=== PATIENT | female | born 2000 | race Two or more races ===

== ENCOUNTER 2025-08-26 13:00 | Outpatient (AMB) | payer MEDICAID, SELFPAY ==
[2025-08-26 13:13] VITALS: BP 130/75; PULSE 89; RESP 16; TEMP 36.9; O2SAT 98; BMI 46.3
--- NOTE | 2025-08-26 13:13 | OBCLNT_ITS ---
Vital Signs 08/26/25 13:13 Height 1.63 m Height Method Stated Weight 122.527 kg Weight Measurement Method Standing Scale BMI 46.3 BP 130/75 Blood Pressure Source Automatic Cuff Blood Pressure Location Left Upper Arm Position Sitting Respiration 16 Pulse 89 Pulse Source Monitor Temp 98.5 F Temp Source Oral Pulse Oximetry (%) 98 Oxygen Delivery Method Room Air Allergies/Home Meds Allergies & Medications Allergies No Known Allergies Allergy (Verified 08/26/25 13:21) Medication Reconciliation No Known Home Medications 08/26/25 [History Confirmed 08/26/25] Intake Visit Data Collection New Patient or Established: Established Patient (seen at [facility] within 3 years) Reason for Visit:: TRANSFER INITIAL CARE Seen by Clinical Staff ONLY (RN/MA): No Straw Hat Machine Operator Required: No Do You Feel Safe at Home: Yes Authorities Contacted: N/A PCP or OBGYN visit in last 3 months: Yes Hx Now: Yes Are you currently on any form of Control: No Last menstrual period: 06/27/25 Pain Present Currently: No Pain Scale Used: Rob-Matt/Numerical Pain scale:: 0 Smoking Status Smoking Status: Current every day smoker Cessation Counseling Provided: BETHEL was advised that quitting smoking is the single most important factor to protect the health of themselves and their family. Discussed the benefits of quitting smoking with patient. Encouraged patient to quit smoking and provided Cessation assistance materials and resources. Tobacco Use: Cigarette Years smoked: 6 Are you interested in Quitting?: No Would you like additional Smoking Cessation Counseling?: No Questionnaires Covid-19 Vaccine Questionnaire Has patient been vacinated for Covid-19 Have you been vacinated for Covid-19: No PHQ-9 PHQ-2 Over the last 2 weeks, how often have you been bothered by any of the following problems? 1. Little interest or pleasure in doing things: not at all 2. Feeling down, depressed, or hopeless: not at all Total score: 0 PHQ-9 3. Trouble falling or staying asleep, or sleeping too much: Not at all 4. Feeling tired or having little energy: Not at all 5. Poor appetite or overeating: Not at all 6. Feeling bad about yourself - or that you are a failure or have let yourself or your family down: Not at all 7. Trouble concentrating on things, such as reading the newspaper or watching television: Not at all 8. Moving or speaking so slowly that other people could have noticed? - Or the opposite - being so fidgety or restless that you have been moving around a lot more than usual: not at all 9. Thoughts that you would be better off or of hurting yourself in some way: Not at all Total score: 0 Source: Developed by Drs. Mak Ramírez, Nette Cee, Brando Cortes and colleagues, with an educational sandeep from [employer]. Depression screen completed yes Social History Living Situation History Lives With: Family Housing: Apartment Tobacco History Smoking Status: Current every day smoker Second Hand Smoke Exposure: Yes Alcohol History Alcohol Intake: Former Substance Use History Substance Use: MARIJUANA Domestic Abuse History Do You Feel Safe at Home: Yes History of Present Illness HPI Narrative Assessment IUP at S<D gestational age of 8.3 weeks and by bedside US 6.2 weeks in a 25 years old G2 P 0 obese patient additional diagnoses size discrepency in dates Plan vaginal Ob US for dates labs NIPT and ARI for chlamydia next visit refer for Vaginal US education/counselling medications PNV immunization to be addressed next visit / Flu and Tdap Follow up 4 weeks OB Initial Visit OB Flowsheet OB Flowsheet Initial Weight: Not Recorded Date -?-?-?-?-?-?-?-?-?-?-?-?- EGA Weight BP Alb Glu CTX Pres Fundal ht FHR Mov Dilation Station Effacement Hx Notes Visit Note 08/26/25 -?-?-?-?-?-?-?-?-?-?-?-?- 8w 3d 122.527 kg 130/75 Menstrual History Menstrual reliability: definite Flow: normal Menstrual regularity: regular Monthly: Yes Age at menarche: 13 On control pills at conception: No Associated symptoms (LMP): Reports nausea, vomiting, fatigue and bloating OB History : 2 Hx Total # of Abortions (Spontaneous & Elective): 0 Infection History & Risk Evaluation History of STDs: [place]lamydia ([place]) Genetic Screening & History Genetic Screening/Teratology Counseling - Includes patient, baby's father, or anyone in either family with: 1. Patient's age 35 years or older as of estimated date of delivery: No 2. Thalassemia (Citizen Of [place], Uzbek, Mediterranean, or Background); MCV less than 80: No 3. Neural Tube Defect (Meningomyelocele, Spina Bifida, or Anencephaly): No 4. Congenital Heart Defect: No 5. Down Syndrome: No 6. Kristian-Sachs (Ashkenazi Scientology, Cajun, Mal[place]ian Isabela): No 7. Ciro Disease (Ashkenazi Scientology): No 8. Familial Dysautonomia (Ashkenazi Scientology): No 9. Sickle Cell Disease or Trait (): No 10. Hemophilia or other blood disorders: No 11. Muscular Dystrophy: No 12. Cystic Fibrosis: No 13. Dane's Chorea: No 14. Mental Retardation/Autism: No 15. Other inherited genetic or chromosomal disorder: No 16. Maternal Metabolic Disorder (EG,TYPE 1 Diabetes, PKU): No 17. Patient or baby's father had a child with defects not listed above: No 18. Recurrent loss or a stillbirth: No 19. Medications (including supplements, vitamins, herbs or otc drugs)/illicit/recreational drugs/alcohol since last menstrual period: No 20. Any other: No Infection History 1. Live with someone with TB or exposed to TB: No 2. Rash or viral illness since last menstrual period: No 3. Hepatitis B,C: No 4. History of STD: chlamydia ([place] 20[place]) Other (see comments) Source: [employer] Review of Systems Review of Systems Systems Reviewed: All systems reviewed, normal except as documented Constitutional Constitutional: Reports fatigue Gastrointestinal Gastrointestinal: Reports bloating, Reports nausea and Reports vomiting Endocrine Endocrine: Reports fatigue Exam Narrative Physical exam: Alert and oriented x 3 no shortness of breath Pain no chest pain no palpitations Chest clear bilaterally no additional sounds, no wheezing no rales CVS regular rate and rhythm No CVAT Abdomen nontender, normal bowel sounds No guarding no rigidity No hernias Office Procedures OBC Clinic LOC & Office Proc's Nursing/Assessment Patient Status: Initial/New Patient OB Clinic Nursing Assessment: Medication Reconciliation, Update PMH in EMR and Vital Signs OB Clinic Coordination of Care: Complex Care and Chronic Disease 1-5, Consent,records obtained, informed consent, Education Simp Pt/Fam, 1 Ins Authorization, Lab and Imaging orders, Results/Orders obtained and Staff clarify orders Special Needs: Heart tones New Patient Charge New Patient Point Assignment: [id number] New Patient Point Charge: LEAD SOFTWARE ARCHITECT Level 4 ([id number]) Assessment & Plan Diagnosis / Problem List (1) : Status: Acute Assessment and Plan: bedside Us abdominal shows a GS c/w 6.2 weeks . at 1.40 cm Plan ob vaginal US at [facility] and follow up in 4 weeks RH NEGATIVE (2) Size of fetus inconsistent with dates in first trimester: Status: Acute Plan: vaginal US Additional Plan Us and follow up and then order NIPT/ Carrier screening done at [facility] and reslts pending Chlamydia treated this month , needs ARI next visit / Follow up in 4 weeks
== END 2025-08-26 13:36 | disposition home or self-care (01) ==
LOC: HODSOBC 13:00
PROVIDERS: PCP Nurse Practitioner; Referring Provider Nurse Practitioner; Supervising Provider Obstetrics & Gynecology; Visit Provider Obstetrics & Gynecology
DX: O09.891 Supervision of other high risk pregnancies, first trimester (principal); O26.841 Uterine size-date discrepancy, first trimester; Z67.91 Unspecified blood type, Rh negative; O99.211 Obesity complicating pregnancy, first trimester; O99.331 Smoking (tobacco) complicating pregnancy, first trimester; F17.210 Nicotine dependence, cigarettes, uncomplicated; Z3A.01 Less than 8 weeks gestation of pregnancy; Z71.6 Tobacco abuse counseling
CPT/HCPCS: 99204; G0463

== ENCOUNTER → 2025-09-02 | Outpatient (CLI) | payer MEDICAID, SELFPAY ==
--- NOTE | 2025-09-02 | XR_ITS ---
Examination: Complete OB ultrasound, less than 14 weeks, transabdominal Date and time of exam: September 02, 2025, 1301 hours INDICATIONS: First trimester with size dates discrepancy Technique: Obstetrical ultrasound images less than 14 weeks performed via transabdominal imaging Findings: A normal shaped single intrauterine gestation is present in the uterus. CRL 1.0 cm corresponds to 7-week 0-day gestational age Cardiac motion 135 bpm Ultrasonographic survey of visible and placental structures unremarkable. Amniotic fluid volume appears appropriate for this estimated gestational age. Right ovary 3.1 cm arterial flow Left ovary 2.0 cm arterial flow IMPRESSION: Viable intrauterine gestation 7 weeks 0 days.
== END | disposition home or self-care (01) ==
PROVIDERS: PCP Nurse Practitioner; Referring Provider Obstetrics & Gynecology; Visit Provider Obstetrics & Gynecology
DX: O26.841 Uterine size-date discrepancy, first trimester (principal); Z3A.01 Less than 8 weeks gestation of pregnancy
CPT/HCPCS: 76801

== ENCOUNTER 2025-09-28 13:20 | Outpatient (AMB) | payer MEDICAID, SELFPAY ==
[2025-09-28 13:35] VITALS: BP 133/74; PULSE 83; RESP 18; TEMP 36.2; O2SAT 98; BMI 45.8
--- NOTE | 2025-09-28 13:35 | OBCLNT_ITS ---
Vital Signs 09/28/25 13:35 Height 1.63 m Height Method Stated Weight 121.733 kg Weight Measurement Method Standing Scale BMI 45.8 BP 133/74 H Blood Pressure Source Automatic Cuff Blood Pressure Location Left Upper Arm Position Sitting Respiration 18 Pulse 83 Pulse Source Monitor Temp 97.2 F Temp Source Oral Pulse Oximetry (%) 98 Oxygen Delivery Method Room Air Allergies/Home Meds Allergies & Medications Allergies No Known Allergies Allergy (Verified 09/28/25 13:36) Medication Reconciliation metoclopramide HCl 10 mg tablet (Reglan) 10 mg PO Q8H #90 tabs 09/28/25 [Rx] Immunizations Immunizations Flu Vaccine in the Last 12 Months: No Flu Vaccine Exclusion Criteria: No Exclusion Criteria Care OB Visit Log OB Flowsheet Initial Weight: Not Recorded Date -?-?-?-?-?-?-?-?-?-?-?-?- EGA Weight BP Alb Glu CTX Pres Fundal ht FHR Mov Dilation Station Effacement Hx Notes Visit Note 08/26/25 -?-?-?-?-?-?-?-?-?-?-?-?- 6w 0d 122.527 kg 130/75 09/28/25 -?-?-?-?-?-?-?-?-?-?-?-?- 10w 5d 121.733 kg 133/74 10 159 CATINA Calculator Estimated Delivery Date Method Current WG Current Estimate 04/21/26 Ultrasound #1 11w 0d Other Estimates 04/04/26 LMP (Uncertain) 13w 3d Notes Visit Date: 09/28/25 Last Updated by: Bina Valles MD on diclegis and has problem keeping food down/ will add reglan and follow up prn or in 4 weeks Dating now established by a 7 week US done at [facility] on 09/02/2025 Today Bedside US c/w CRL of 10.4 weeks and a single fetus/ IUP with FCA seen at 159bpm / plan first trimester labs and also NIPT and carrier testing Visit Date: 08/26/25 Last Updated by: Bina Valles MD bedside Us abdominal shows a GS c/w 6.2 weeks . at 1.40 cm Plan ob vaginal US at [facility] and follow up in 4 weeks RH NEGATIVE Hb 11 , mcv IS LOW AND mchc IS LOW /patient not taking Tramadol or anti depressants she is treated for chlamydia earlier this month / follow up in 4 weeks and plan ARI and NIPT then / Taking PNV Office Procedures OBC Clinic LOC & Office Proc's Nursing/Assessment Patient Status: Established Patient OB Clinic Nursing Assessment: Medication Reconciliation, Update PMH in EMR and Vital Signs OB Clinic Coordination of Care: Consent,records obtained, informed consent, Education Simp Pt/Fam, Lab and Imaging orders, Results/Orders obtained and Staff clarify orders Special Needs: Heart tones Established Patient Charge Established Patient Point Assignment: 110 Established Patient Point Charge: EP Level 3 (80-115) Assessment & Plan Diagnosis / Problem List (1) Size of fetus inconsistent with dates in first trimester: Status: Acute Assessment and Plan: dating established now and patient is 10.5 weeks (2) : Status: Acute Qualifiers: Weeks of gestation: 10 weeks Qualified Code(s): Z3A.10 - 10 weeks gestation of (3) Vomiting affecting , antepartum: Status: Acute Plan: add reglan before meals Assessment and Plan: HISTORY OF PRESENT ILLNESS AI Consent obtained: I, Dr. Valles, have obtained verbal consent from the patient, to be recorded during this encounter which may include, but not limited to, medical history, examination, treatment plans, and relevant health information. Patient was informed that recording will be read and reviewed by myself before inclusion in the medical chart. Recordings will be maintained in accordance with State and Federal law and only for a limited period of time for validation purposes, then destroyed and not retained. The patient presents for evaluation of . She is currently with her first child and has not yet undergone any laboratory tests. She has been experiencing difficulty in retaining food, often regurgitating within 10 to 15 minutes post-consumption. Despite being prescribed a medication for nausea, she reports it has not been effective. She is currently taking vitamins. PHYSICAL EXAM Obstetric: Fundal Height: Consistent with 10 weeks and 4 days gestation. Heart Tones: 159 bpm, normal. RESULTS Imaging - Ultrasound: Healthy fetus with a heartbeat of 159 bpm ASSESSMENT AND PLAN 1. : - The ultrasound dating has been updated, showing she is 10 weeks and 5 days . - The heartbeat is 159 bpm, which is normal. - A comprehensive set of laboratory tests will be ordered, including gender testing and genetic disease screening. - She is recommended to receive the influenza vaccine during her . 2. Nausea: - She reports difficulty keeping food down and that her current medication is not effective. - Reglan will be added to her treatment regimen, to be taken 30 minutes before meals, three times daily.
== END 2025-09-28 14:19 | disposition home or self-care (01) ==
LOC: HODSOBC 13:20
PROVIDERS: Supervising Provider Obstetrics & Gynecology; Visit Provider Obstetrics & Gynecology
DX: O09.891 Supervision of other high risk pregnancies, first trimester (principal); O26.841 Uterine size-date discrepancy, first trimester; O21.9 Vomiting of pregnancy, unspecified; Z3A.10 10 weeks gestation of pregnancy
CPT/HCPCS: 99213; G0463

== ENCOUNTER 2025-10-26 10:37 | Outpatient (AMB) | payer MEDICAID, SELFPAY ==
[2025-10-26 11:21] VITALS: BP 133/76; PULSE 93; RESP 18; TEMP 36.8; O2SAT 98; BMI 45.4
--- NOTE | 2025-10-26 11:21 | OBCLNT_ITS ---
Vital Signs 10/26/25 11:21 Height 1.63 m Height Method Stated Weight 120.826 kg Weight Measurement Method Standing Scale BMI 45.4 BP 133/76 H Blood Pressure Source Automatic Cuff Blood Pressure Location Left Upper Arm Position Sitting Respiration 18 Pulse 93 Pulse Source Monitor Temp 98.2 F Temp Source Oral Pulse Oximetry (%) 98 Oxygen Delivery Method Room Air Allergies/Home Meds Allergies & Medications Allergies No Known Allergies Allergy (Verified 10/26/25 11:21) Medication Reconciliation metoclopramide HCl 10 mg tablet (Reglan) 10 mg PO Q8H #90 tabs 09/28/25 [Rx Confirmed 10/26/25] Immunizations Immunizations Flu Vaccine in the Last 12 Months: No Flu Vaccine Exclusion Criteria: No Exclusion Criteria Care OB Visit Log OB Flowsheet Initial Weight: Not Recorded Date -?-?-?-?-?-?-?-?-?-?-?-?- EGA Weight BP Alb Glu CTX Pres Fundal ht FHR Mov Dilation Station Effacement Hx Notes Visit Note 08/26/25 -?-?-?-?--?-?-?-?-?-?-?-?- 6w 0d 122.527 kg 130/75 09/28/25 -?-?-?-?-?-?-?-?-?-?-?-?- 10w 5d 121.733 kg 133/74 10 159 CATINA Calculator Estimated Delivery Date Method Current WG Current Estimate 04/21/26 Ultrasound #1 14w 5d Other Estimates 04/04/26 LMP (Uncertain) 17w 1d Notes Visit Date: 09/28/25 Last Updated by: Bina Valles MD on diclegis and has problem keeping food down/ will add reglan and follow up prn or in 4 weeks Dating now established by a 7 week US done at [facility] on 09/02/2025 Today Bedside US c/w CRL of 10.4 weeks and a single fetus/ IUP with FCA seen at 159bpm / plan first trimester labs and also NIPT and carrier testing Visit Date: 08/26/25 Last Updated by: Bina Valles MD bedside Us abdominal shows a GS c/w 6.2 weeks . at 1.40 cm Plan ob vaginal US at [facility] and follow up in 4 weeks RH NEGATIVE Hb 11 , mcv IS LOW AND mchc IS LOW /patient not taking Tramadol or anti depressants she is treated for chlamydia earlier this month / follow up in 4 weeks and plan ARI and NIPT then / Taking PNV Office Procedures OBC Clinic LOC & Office Proc's Nursing/Assessment Patient Status: Established Patient OB Clinic Nursing Assessment: Medication Reconciliation, Update PMH in EMR and Vital Signs OB Clinic Coordination of Care: Consent,records obtained, informed consent, Education Simp Pt/Fam, Lab and Imaging orders, Results/Orders obtained and Staff clarify orders Special Needs: Heart tones Established Patient Charge Established Patient Point Assignment: 110 Established Patient Point Charge: EP Level 3 (80-115) Assessment & Plan Diagnosis / Problem List (1) : Status: Acute Qualifiers: Weeks of gestation: 10 weeks Qualified Code(s): Z3A.10 - 10 weeks gestation of (2) Obesity: Status: Acute Qualifiers: Body mass index: BMI 45.0-49.9 Obesity classification: adult class 3 (BMI >= 40) Obesity type: unspecified obesity type Serious obesity comorbidity presence: unspecified whether serious comorbidity present Qualified Code(s): E66.813 - Obesity, class 3; Z68.42 - Body mass index [BMI] 45.0-49.9, adult (3) Rh negative state in antepartum period: Status: Acute Additional Assessment MSAFP next visit/ Labs reviewed / follow up in 4 weeks / 14.5 weeks today / Macrobid for UTI
== END 2025-10-26 12:14 | disposition home or self-care (01) ==
LOC: HODSOBC 10:37
PROVIDERS: Supervising Provider Obstetrics & Gynecology; Visit Provider Obstetrics & Gynecology
DX: O09.892 Supervision of other high risk pregnancies, second trimester (principal); O99.212 Obesity complicating pregnancy, second trimester; O23.42 Unspecified infection of urinary tract in pregnancy, second trimester; Z67.91 Unspecified blood type, Rh negative; Z3A.14 14 weeks gestation of pregnancy
CPT/HCPCS: 99213; G0463